=== PATIENT | male | born 1995 | race African-American/Black ===

== ENCOUNTER 2023-08-28 16:35 | Emergency (ER) | payer BC ==
[2023-08-28] MEDS ORDERED: Mag-Al Plus 1200 MG/1200 MG/120 MG/30 ML UDCUP ONE (17:03)
[2023-08-28] MEDS ORDERED: Lidocaine Viscous Sol 2% 15 ml UD Cup ONE (17:03)
[2023-08-28] MEDS ORDERED: Ondansetron ODT 4 MG TAB ONE (17:03)
== END 2023-08-28 17:28 | disposition home or self-care (01) ==
LOC: NAV ERS 16:35
DX: K21.9 Gastro-esophageal reflux disease without esophagitis (principal); R11.2 Nausea with vomiting, unspecified
CPT/HCPCS: 99283; Q0162

== ENCOUNTER 2023-09-17 21:03 | Emergency (ER) | payer BC, SELFPAY ==
[2023-09-17] MEDS ORDERED: Ketorolac Tromethamine 30 MG/ML VIAL ONE (21:35)
[2023-09-17] MEDS ORDERED: Prochlorperazine 10 MG/2 ML VIAL ONE (21:36)
[2023-09-17] MEDS ORDERED: Sodium Chloride 0.9% 1,000 ML ONE (21:36)
[2023-09-17 21:46] LABS: #Basophils 0.1 thou/uL (0.0-0.2); #Lymphocytes 0.9 thou/uL (1.20-3.40); #Monocytes 0.9 thou/uL (0.11-0.59); #Neutrophils 7.2 thou/uL (1.40-6.50); %Basophils 0.9 % (0.0-1.0); %Eosinophils 0.1 % (0.0-10.0); %Lymphocytes 9.4 % (21.0-51.0); %Monocytes 9.7 % (0.0-10.0); Hematocrit 46.2 % (42.0-52.0); Hemoglobin 15.3 g/dL (14.0-18.0); Mean Corpuscular HGB CONC 33.2 g/dL (32.0-36.0); Mean Corpuscular Hemoglobin 28.8 pg (27.0-31.0); Mean Corpuscular Volume 86.8 fl (78.0-98.0); Mean Platelet Volume 7.9 fL (7.4-10.4); Platelet Count 255 10x3/uL (130-400); RBC Distribution Width 11.7 % (11.5-14.5); Red Blood Cell (RBC) Count 5.32 mill/uL (4.70-6.10)
[2023-09-17 22:04] LABS: ALT (SGPT) 21 U/L (8-55); AST (SGOT) 15 U/L (5-34); Albumin 4.4 g/dL (3.5-5.0); Alkaline Phosphatase 37 U/L (40-110); Anion Gap 14 mmol/L (10-20); BUN (Urea Nitrogen) 8 mg/dL (8.9-20.6); Bilirubin, Total 1.3 mg/dL (0.2-1.2); Calc. Creatinine Clearance 0 mL/min (70-130); Calcium 9.2 mg/dL (7.8-10.44); Carbon Dioxide 25 mmol/L (22-29); Chloride 104 mmol/L (98-107); Estimated GFR 93; Globulin 3.5 g/dL (2.4-3.5); Glucose 99 mg/dL (70-105); Lipase 17 U/L (8-78); Potassium 3.3 mmol/L (3.5-5.1); Protein, Total 7.9 g/dL (6.0-8.3); Sodium 140 mmol/L (136-145)
== END 2023-09-17 22:52 | disposition home or self-care (01) ==
LOC: NAV ERS 21:03
DX: B34.9 Viral infection, unspecified (principal)
CPT/HCPCS: 80053; 83605; 83690; 85025; 87804; 96361; 96374; 96375; J0780; J1885; J7050